=== PATIENT | female | born 1990 | race Caucasian/White ===

== ENCOUNTER → 2020-08-25 | Outpatient (CLI) | payer OTHER ==
[2020-08-27 13:13] LABS: CHLAMYDIA BY NAA Negative (Negative); GONOCOCCUS BY NAA Negative (Negative); TRICH VAG BY NAA Negative (Negative)
== END ==
LOC: LAB SHORT 14:35 → LAB UCHC 14:35
PROVIDERS: Registered Nurse Community Health
DX: Z72.51 High risk heterosexual behavior (principal)
CPT/HCPCS: 87491; 87591; 87661

== ENCOUNTER → 2020-11-03 | Outpatient (CLI) | payer OTHER ==
[2020-11-03 15:29] LABS: Appearance, Urine Clear (Clear); Bilirubin, Urine Neg (Neg); Blood, Urine Neg (Neg); Color, Urine Yellow (P-Yellow); Glucose Qualitative, Urine Neg (Neg); Ketones, Urine Neg (Neg); Leukocyte Esterase, Urine Neg (Neg); Nitrite, Urine Neg (Neg); Protein, Urine Neg (Neg); Specific Gravity, Urine 1.015 (1.003-1.022); Urobilinogen, Urine NORM (Normal); pH, Urine 6.5 (5.0-8.0)
[2020-11-06 04:10] LABS: CHLAMYDIA TRACHOMATIS, NAA Negative (Negative)
== END ==
LOC: LAB 14:51 → LAB SHORT 14:51
PROVIDERS: Registered Nurse Community Health
DX: Z34.00 Encounter for supervision of normal first pregnancy, unspecified trimester (principal)
CPT/HCPCS: 81003; 87086; 87491; 87591

== ENCOUNTER → 2020-12-03 | Outpatient (CLI) | payer OTHER | LOC: PLD 17:20 → LAB SHORT 17:20 | DX: Z34.00 Encounter for supervision of normal first pregnancy, unspecified trimester (principal) | CPT/HCPCS: 86850; 86870; 86900; 86901 ==

== ENCOUNTER → 2024-09-27 | Outpatient (CLI) | payer OTHER ==
[2024-09-29 08:08] LABS: Candida glabrata-krusei, PCR NOT DETECTED (NOT DETECT)
[2024-09-29 10:13] LABS: Bacterial Vaginosis PCR Positive (NEGATIVE); Candida Group, PCR DETECTED (NOT DETECT)
== END ==
LOC: LAB 15:45 → LAB SHORT 15:45
PROVIDERS: Family Medicine
DX: B37.31 Acute candidiasis of vulva and vagina (principal)
CPT/HCPCS: 87481; 87661; 87801

== ENCOUNTER 2024-12-10 17:51 | Emergency (ER) | payer OTHER ==
[~2024-12-10] VITALS: Ht 170.2 cm; Wt 79.4 kg
[2024-12-10] MEDS ORDERED: Alteplase Recombinant 2 MG / Vial IV ONE (18:15)
[2024-12-10] MEDS ORDERED: CeFAZolin Sodium 2,000 MG in NS 100 ML IV ONE (19:55)
[2024-12-10 20:46] VITALS: BP 128/88
== END 2024-12-10 20:48 | disposition home or self-care (01) ==
LOC: ER 17:51
DX: T82.594A Other mechanical complication of infusion catheter, initial encounter (principal); Y71.8 Miscellaneous cardiovascular devices associated with adverse incidents, not elsewhere classified; F17.200 Nicotine dependence, unspecified, uncomplicated
CPT/HCPCS: 71045; 96365; 99283-25; J0690; J2997

== ENCOUNTER → 2025-02-07 | Outpatient (CLI) | payer OTHER ==
[2025-02-08 07:24] LABS: Bacterial Vaginosis PCR Negative (NEGATIVE)
[2025-02-08 09:57] LABS: Candida Group, PCR DETECTED (NOT DETECT); Candida glabrata-krusei, PCR DETECTED (NOT DETECT)
[2025-02-10 11:50] LABS: HEPATITIS B SURFACE ANTIGEN Negative (Negative)
[2025-02-10 15:33] LABS: HIV 1,2 COMBO ANTIGEN/ANTIBODY Negative (Negative)
[2025-02-10 17:15] LABS: HEPATITIS C AB CIA INTERP High Pos (Negative); HEPATITIS C ANTIBODY CIA INDEX >11.00 IV
[2025-02-11 06:39] LABS: APTIMA MEDIA TYPE Urine; C. TRACHOMATIS BY TMA Negative (Negative); N. GONORRHOEAE BY TMA Negative (Negative); SPECIMEN SOURCE Urine
[2025-02-11 15:17] LABS: HCV QNT BY NAAT (IU/ML) 2840000 IU/mL; HCV QNT BY NAAT (LOG IU/ML) 6.45; HCV QNT BY NAAT INTERP Detected (Not Detected)
== END ==
LOC: LAB 12:28 → LAB SHORT 12:28
PROVIDERS: Nurse Practitioner Family
DX: Z20.2 Contact with and (suspected) exposure to infections with a predominantly sexual mode of transmission (principal)
CPT/HCPCS: 81515; 83036; 86592; 86803; 87340; 87389; 87491; 87522; 87591

== ENCOUNTER 2025-05-30 18:50 | Emergency (ER) | payer OTHER ==
[~2025-05-30] VITALS: Ht 170.2 cm; Wt 86.2 kg
[2025-05-30 19:11] VITALS: BP 115/83
[2025-05-30] MEDS ORDERED: ACTIVATED CHARCOAL/SORBITOL 25 GM/120 ML BTL PO ONE (19:25)
== END 2025-05-30 22:05 | disposition left against medical advice (07) ==
LOC: ER 18:50
DX: T40.411A Poisoning by fentanyl or fentanyl analogs, accidental (unintentional), initial encounter (principal); Z53.29 Procedure and treatment not carried out because of patient's decision for other reasons